=== PATIENT | female | born 2000 | race Caucasian/White ===

== ENCOUNTER 2020-12-18 10:59 | Emergency (ER) | payer SELFPAY ==
--- NOTE | 2020-12-18 11:02 | ERPHSYRPT ---
- History of Present Illness Time Seen by Provider: 12/18/20 11:01 Source: patient Exam Limitations: no limitations Physician History: This is a 20-year-old white female who noticed mild suprapubic cramping yesterday and vaginal bleeding described as spotting. The cramping and the spotting has not increased since yesterday. Patient took 6 different test between yesterday and today. Each 1 showed a positive test. Patient's last menstrual period was November 13, 2020. Patient denies nausea vomiting and diarrhea. Patient denies shortness of breath and denies chest pain. 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 She has seen Dr. Hunt in the past. Patient denies flank pain and she denies dysuria. Patient is not dizzy. She states that she does not particularly feel weak or fatigued. Patient has no liver disease. She denies having any bleeding or clotting disorders. Patient is not taking aspirin or ibuprofen. Timing/Duration: yesterday Activites at Onset: none Quality: cramping (Mild suprapubic) Onset Location: suprapubic Pain Radiation: none Severity of Pain-Max: mild Severity of Pain-Current: mild Prior abdominal problems: none Sexual intercourse history: non-contributory Modifying Factors: Improves With: nothing Associated Symptoms: vaginal discharge (Described as spotting of blood.), No nausea, No vomiting, No dysuria Allergies/Adverse Reactions: No Known Drug Allergies Allergy (Unverified 12/18/20 11:15) Home Medications: No Reportable Medications [No Reported Medications] 12/18/20 [History] Travel Risk - International Travel Have you traveled outside of the country in past 3 weeks: No - Coronavirus Screening Are you exhibiting any of the following symptoms?: No Close contact with a COVID-19 positive Pt in past 14-21 Days: No - Review of Systems Constitutional: No Symptoms Eyes: No Symptoms Ears, Nose, & Throat: No Symptoms Respiratory: No Symptoms Cardiac: No Symptoms Abdominal/Gastrointestinal: Abdominal Pain (Mild suprapubic) Genitourinary Symptoms: Vaginal Bleeding (Described as mild spotting. Unchanged in degree over 24 hours.) Musculoskeletal: No Symptoms Skin: No Symptoms Neurological: No Symptoms Psychological: No Symptoms Endocrine: No Symptoms Hematologic/Lymphatic: No Symptoms Immunological/Allergic: No Symptoms All Other Systems: Reviewed and Negative - Past Medical History Pertinent Past Medical History: Yes - Past Surgical History Past Surgical History: Yes - Nursing Vital Signs Nursing Vital Signs: Initial Vital Signs Temperature 97.1 F 12/18/20 11:03 Pulse Rate 108 H 12/18/20 11:03 Respiratory Rate 18 12/18/20 11:03 Blood Pressure 130/86 12/18/20 11:03 O2 Sat by Pulse Oximetry 98 12/18/20 11:03 Pain Scale Pain Intensity 0 - Physical Exam General Appearance: no apparent distress, alert, anxiety Eye Exam: PERRL/EOMI, eyes nml inspection Ears, Nose, Throat Exam: normal ENT inspection, moist mucous membranes Neck Exam: normal inspection, non-tender, supple, full range of motion Respiratory Exam: normal breath sounds, lungs clear, airway intact, No chest tenderness, No respiratory distress Cardiovascular Exam: tachycardia (Mild) Gastrointestinal/Abdomen Exam: soft, normal bowel sounds, No tenderness, No guarding, No rebound Pelvic Exam: not done Rectal Exam: not done Back Exam: normal inspection, normal range of motion, No CVA tenderness, No vertebral tenderness Extremity Exam: normal inspection, normal range of motion, pelvis stable Neurologic Exam: alert, oriented x 3, cooperative, 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, normal mood/affect, nml cerebellar function, nml station & gait, sensation nml Skin Exam: normal color, warm, dry Lymphatic Exam: No adenopathy SpO2 Interpretation: normal O2 Delivery: Room Air - Course Nursing assessment & vital signs reviewed: Yes Ordered Tests: Active Orders 24 hr Category Date Time Status OB <14 WKS 1ST GESTATION [US] Stat Exams 12/18/20 11:32 Completed CBC W DIFF Stat Lab 12/18/20 11:20 Completed CMP Stat Lab 12/18/20 11:20 Completed CULTURE,URINE Stat Lab 12/18/20 11:16 Received HCG, Quantitative (Inhouse) Stat Lab 12/18/20 11:20 Completed PROTIME WITH INR Stat Lab 12/18/20 11:20 Completed UA W/RFX UR CULTURE Stat Lab 12/18/20 11:16 Completed Lab/Rad Data: Laboratory Result Diagrams 12/18/20 11:20 12/18/20 11:20 Laboratory Results 12/18/20 12/18/20 12/18/20 Range/Units 11:20 11:20 11:20 WBC 7.0 (4.0-10.5) K/mm3 RBC 4.70 (4.1-5.4) M/mm3 Hgb 11.9 L (12.0-16.0) gm/dl Hct 38.1 (35-47) % MCV 81.1 (78-100) fl MCH 25.3 L (26-32) pg MCHC 31.2 L (32-36) g/dl RDW 14.4 H (11.5-14.0) % Plt Count 178 (150-450) K/mm3 MPV 10.7 (7.5-11.0) fl Gran % 70.0 H (36.0-66.0) % Eos # (Auto) 0.05 (0-0.5) Absolute Lymphs (auto) 1.44 (1.0-4.6) Absolute Monos (auto) 0.60 (0.0-1.3) Lymphocytes % 20.5 L (24.0-44.0) % Monocytes % 8.5 (0.0-12.0) % Eosinophils % 0.7 (0.00-5.0) % Basophils % 0.3 (0.0-0.4) % Absolute Granulocytes 4.92 (1.4-6.9) Basophils # 0.02 (0-0.4) PT 11.7 (9.95-12.35) SECONDS INR 1.04 (0.8-3.0) Sodium 138 (137-145) mmol/L Potassium 3.9 (3.5-5.1) mmol/L Chloride 105 (98-107) mmol/L Carbon Dioxide 24 (22-30) mmol/L Anion Gap 12.9 (5-15) MEQ/L BUN 14 (7-17) mg/dL Creatinine 0.57 (0.52-1.04) mg/dL Estimated GFR > 60.0 ML/MIN Glucose 103 (74-106) mg/dL Calcium 9.3 (8.4-10.2) mg/dL Total Bilirubin 0.20 (0.2-1.3) mg/dL AST 19 (14-36) U/L ALT 17 (0-35) U/L Alkaline Phosphatase 48 (38-126) U/L Serum Total Protein 7.7 (6.3-8.2) g/dL Albumin 4.6 (3.5-5.0) g/dL Beta HCG, Quant mIU/ml Urine Color (YELLOW) Urine Appearance (CLEAR) Urine pH (5-6) Ur Specific [place] (1.005-1.025) Urine Protein (Negative) Urine Ketones (NEGATIVE) Urine Blood (0-5) Kyle/ul Urine Nitrite (NEGATIVE) Urine Bilirubin (NEGATIVE) Urine Urobilinogen (0-1) mg/dL Ur Leukocyte Esterase (NEGATIVE) Urine WBC (Auto) (0-5) /HPF Urine RBC (Auto) (0-2) /HPF U Epithel Cells (Auto) (FEW) /HPF Urine Bacteria (Auto) (NEGATIVE) /HPF Urine Mucus (Auto) (NEGATIVE) /HPF Urine Culture Reflexed (NO) Urine Glucose (NEGATIVE) mg/dL 12/18/20 12/18/20 Range/Units 11:20 11:16 WBC (4.0-10.5) K/mm3 RBC (4.1-5.4) M/mm3 Hgb (12.0-16.0) gm/dl Hct (35-47) % MCV (78-100) fl MCH (26-32) pg MCHC (32-36) g/dl RDW (11.5-14.0) % Plt Count (150-450) K/mm3 MPV (7.5-11.0) fl Gran % (36.0-66.0) % Eos # (Auto) (0-0.5) Absolute Lymphs (auto) (1.0-4.6) Absolute Monos (auto) (0.0-1.3) Lymphocytes % (24.0-44.0) % Monocytes % (0.0-12.0) % Eosinophils % (0.00-5.0) % Basophils % (0.0-0.4) % Absolute Granulocytes (1.4-6.9) Basophils # (0-0.4) PT (9.95-12.35) SECONDS INR (0.8-3.0) Sodium (137-145) mmol/L Potassium (3.5-5.1) mmol/L Chloride (98-107) mmol/L Carbon Dioxide (22-30) mmol/L Anion Gap (5-15) MEQ/L BUN (7-17) mg/dL Creatinine (0.52-1.04) mg/dL Estimated GFR ML/MIN Glucose (74-106) mg/dL Calcium (8.4-10.2) mg/dL Total Bilirubin (0.2-1.3) mg/dL AST (14-36) U/L ALT (0-35) U/L Alkaline Phosphatase (38-126) U/L Serum Total Protein (6.3-8.2) g/dL Albumin (3.5-5.0) g/dL Beta HCG, Quant 12.61 mIU/ml Urine Color YELLOW (YELLOW) Urine Appearance SLIGHTLY CLOUDY (CLEAR) Urine pH 6.0 (5-6) Ur Specific [place] 1.015 (1.005-1.025) Urine Protein 30 (Negative) Urine Ketones NEGATIVE (NEGATIVE) Urine Blood LARGE (0-5) Kyle/ul Urine Nitrite NEGATIVE (NEGATIVE) Urine Bilirubin NEGATIVE (NEGATIVE) Urine Urobilinogen NEGATIVE (0-1) mg/dL Ur Leukocyte Esterase NEGATIVE (NEGATIVE) Urine WBC (Auto) 11-15 (0-5) /HPF Urine RBC (Auto) >101 (0-2) /HPF U Epithel Cells (Auto) RARE (FEW) /HPF Urine Bacteria (Auto) RARE (NEGATIVE) /HPF Urine Mucus (Auto) SLIGHT (NEGATIVE) /HPF Urine Culture Reflexed YES (NO) Urine Glucose NEGATIVE (NEGATIVE) mg/dL - Progress Progress: improved Air Movement: good Progress Note: 12/18/20 13:10 Obstetric ultrasound shows 2 right adnexal simple cysts. There is a thickened endometrial stripe. No evidence for any ectopic . Medical decision making: This patient is hemodynamically stable. Her hemoglobin is 11.9. She is not orthostatic. Her obstetric ultrasound does not show an ectopic . Her quantitative hCG is only very slightly elevated. We will discharge her to home. We will order an outpatient quantitative hCG as well as a repeat CBC. Because of the long holiday weekend, I will order the repeat labs to be performed in 48 hours. I will tell her to wait in the emergency department for the lab results before going home. She should call her primary care physician on December 22 for further management. Blood Culture(s) Obtained: No Antibiotics given: No Counseled pt/family regarding: lab results, diagnosis, need for follow-up, rad results - Departure Departure Disposition: Home Clinical Impression: Vaginal bleeding Condition: Stable Critical Care Time: No Referrals: DOCTOR,NO FAMILY [Primary Care Provider] - Additional Instructions: Return to this [facility]'s lab on 12/20/2020 in the morning to have repeat labs drawn. Wait in the emergency room waiting area for your results before going home. On your lab prescription I will put a note to have the labs called to the emergency department because it is a long holiday weekend. Return to the emergency department before then if symptoms of pain or increased bleeding is present.
[2020-12-18 11:35] LABS: Absolute Neutrophil Ct (ANC) 4.92 (1.4-6.9); BASOPHIL % 0.3 % (0.0-0.4); Basophil (Absolute #) 0.02 (0-0.4); Eosinophil % 0.7 % (0.00-5.0); Eosinophil (Absolute #) 0.05 (0-0.5); Hematocrit 38.1 % (35-47); Hemoglobin 11.9 gm/dl (12.0-16.0); Lymphocyte (Absolute #) 1.44 (1.0-4.6); Lymphocytes % 20.5 % (24.0-44.0); Mean Cell Volume 81.1 fl (78-100); Mean Corpuscular Hemoglobin 25.3 pg (26-32); Mean Corpuscular Hgb Concent. 31.2 g/dl (32-36); Mean Platelet Volume 10.7 fl (7.5-11.0); Monocytes % 8.5 % (0.0-12.0); Platelet Count 178 K/mm3 (150-450); Red Cell Distribution Width 14.4 % (11.5-14.0)
[2020-12-18 11:40] LABS: Appearance SLIGHTLY CLOUDY (CLEAR); Bacteria RARE /HPF (NEGATIVE); Bilirubin NEGATIVE (NEGATIVE); Blood LARGE Ery/ul (0-5); Epithelial Cells RARE /HPF (FEW); Glucose NEGATIVE (NEGATIVE); Ketones NEGATIVE (NEGATIVE); Leukocyte Esterase NEGATIVE (NEGATIVE); Mucus SLIGHT /HPF (NEGATIVE); Nitrite NEGATIVE (NEGATIVE); Protein,Urine Dip 30 (Negative); Specific Gravity 1.015 (1.005-1.025); Urobilinogen NEGATIVE mg/dL (0-1)
[2020-12-18 11:41] LABS: RBC >101 /HPF (0-2)
[2020-12-18 11:44] LABS: INR 1.04 (0.8-3.0); PROTIME 11.7 SECONDS (9.95-12.35)
[2020-12-18 11:47] LABS: ALBUMIN 4.6 g/dL (3.5-5.0); ALKALINE PHOSPHATASE 48 U/L (38-126); BLOOD UREA NITROGEN 14 mg/dL (7-17); CHLORIDE 105 mmol/L (98-107); Calcium 9.3 mg/dL (8.4-10.2); Carbon Dioxide 24 mmol/L (22-30); Creatinine 1 0.57 mg/dL (0.52-1.04); EST GLOMERULAR FILTRATION RATE > 60.0 ML/MIN; Glucose 103 mg/dL (74-106); SGOT/AST 19 U/L (14-36); SGPT/ALT 17 U/L (0-35); SODIUM 138 mmol/L (137-145); Total Protein 7.7 g/dL (6.3-8.2)
[2020-12-18 11:49] LABS: Potassium 3.9 mmol/L (3.5-5.1)
[2020-12-18 11:50] LABS: ANION GAP 12.9 MEQ/L (5-15)
--- NOTE | 2020-12-18 13:00 | XRAY ---
Indication: Bleeding, cramping, and general pain. Two-dimensional transvaginal pelvic sonogram performed. Comparison: None Uterus is retroverted measuring 8.7 x 3.8 x 6.4 cm. No focal solid/cystic uterine mass. Endometrial stripe is thickened measuring 1.6 cm. No endometrial cavity mass or fluid collection. Right ovary measures 1.6 x 1.4 x 2.8 cm and the left measures 3.7 x 1.3 x 2.5 cm. Normal perfusion and follicular cysts bilaterally. 2 indeterminant anechoic cysts seen adjacent to the right ovary, larger measuring 1.4 cm. No suspicious solid adnexal mass or free fluid. Impression: 1. Retroverted uterus with thickened endometrial stripe. Correlate with patient's menstrual cycle. 2. 2 right adnexa simple appearing cysts, possible paraovarian cysts. 3. Remaining transvaginal pelvic sonogram is negative.
[2020-12-18 13:08] VITALS: O2SAT 98
[2020-12-18 13:25] VITALS: BP 120/84; PULSE 76
== END 2020-12-18 13:30 | disposition home or self-care (01) ==
LOC: ED 10:59
DX: N93.9 Abnormal uterine and vaginal bleeding, unspecified (principal); Z32.01 Encounter for pregnancy test, result positive; R10.9 Unspecified abdominal pain
CPT/HCPCS: 36000; 36415; 76801; 80053; 81001; 84702; 85025; 85610; 87086; 99284

== ENCOUNTER 2022-05-10 13:56 | Emergency (ER) | payer OTHER ==
--- NOTE | 2022-05-10 13:58 | ERPHSYRPT ---
- History of Present Illness Time Seen by Provider: 05/10/22 13:58 Source: patient Exam Limitations: no limitations Physician History: This is a 21-year-old white female who is approximate 33 weeks presents with right labial cyst that she thinks is infected. Is been present for a month. She has noticed that it is enlarging over last 5 days. There is been no drainage. Today it was even worse and much more tender. She denies fevers or chills. Timing/Duration: worse Quality: painful Severity: mild (To moderate) Location: other (Right labial) Possible Causes: other (Infected Bartholin cyst) Associated Symptoms: change in skin texture, swelling/mass/lumps (Right labial) Allergies/Adverse Reactions: No Known Drug Allergies Allergy (Verified 05/10/22 14:18) Home Medications: No122/Iron/Folic Acid [ Multi Tablet] 1 each PO DAILY 05/10/22 [History] Hx Tetanus, Diphtheria Vaccination/Date Given: Yes Hx Influenza Vaccination/Date Given: No Travel Risk - International Travel Have you traveled outside of the country in past 3 weeks: No - Coronavirus Screening Are you exhibiting any of the following symptoms?: No Close contact with a COVID-19 positive Pt in past 14-21 Days: No - Review of Systems Constitutional: No Symptoms Eyes: No Symptoms Ears, Nose, & Throat: No Symptoms Respiratory: No Symptoms Cardiac: No Symptoms Abdominal/Gastrointestinal: No Symptoms Genitourinary Symptoms: Other (Infected right labial cyst) Musculoskeletal: No Symptoms Skin: Other (Infected right labial cyst) Neurological: No Symptoms Psychological: No Symptoms Endocrine: No Symptoms Hematologic/Lymphatic: No Symptoms Immunological/Allergic: No Symptoms All Other Systems: Reviewed and Negative - Past Medical History Pertinent Past Medical History: Yes - Past Surgical History Past Surgical History: Yes - Social History Smoking Status: Never smoker Exposure to second hand smoke: No Drug Use: none Patient Lives Alone: No - Nursing Vital Signs Nursing Vital Signs: Initial Vital Signs Temperature 97.3 F 05/10/22 14:01 Pulse Rate 97 H 05/10/22 14:01 Respiratory Rate 16 05/10/22 14:01 Blood Pressure 136/79 05/10/22 14:01 O2 Sat by Pulse Oximetry 99 05/10/22 14:01 Pain Scale Pain Intensity 6 - Physical Exam General Appearance: no apparent distress, alert, anxiety Eye Exam: PERRL/EOMI, eyes nml inspection Ears, Nose, Throat Exam: normal ENT inspection, moist mucous membranes Neck Exam: normal inspection, non-tender, supple, full range of motion Respiratory Exam: normal breath sounds, lungs clear, airway intact, No chest tenderness, No respiratory distress Cardiovascular Exam: regular rate/rhythm, normal heart sounds, normal peripheral pulses Gastrointestinal/Abdomen Exam: soft, normal bowel sounds, No tenderness Pelvic Exam: other (Infected right labial cyst/abscess) Rectal Exam: not done Back Exam: normal inspection, normal range of motion, No CVA tenderness Extremity Exam: normal inspection, normal range of motion, pelvis stable Neurologic Exam: alert, oriented x 3, cooperative, roadside mechanic II-XII nml as tested, nor mal mood/affect, nml cerebellar function, nml station & gait, sensation nml Skin Exam: other (Abscess right labia) Lymphatic Exam: No adenopathy SpO2 Interpretation: normal O2 Delivery: Room Air Procedures - Incision and Drainage Time of Procedure: 14:25 Site: Right labial cyst Anesthesia: 1% Lidocaine cc's of anesthesia: 2 Blade Size: 15 I & D Procedure: betadine prep, culture obtained Results: moderate amount pus - Course Nursing assessment & vital signs reviewed: Yes Ordered Tests: Medication Summary Discontinued Medications Generic Name Dose Route Start Last Admin Trade Name Miguel Ángel PRN Reason Stop Dose Admin Lidocaine HCl Confirm 05/10/22 14:26 Lidocaine Hcl 1% 20 Ml Mdv 20 Ml Ml Administered 05/10/22 14:27 Dose 1 ml .ROUTE .STClear [facility]-MED ONE - Progress Progress: improved Counseled pt/family regarding: diagnosis, need for follow-up - Departure Departure Disposition: Home Clinical Impression: Infected cyst of Bartholin's gland duct Condition: Stable Critical Care Time: No Referrals: WILLIAM RASHID [Primary Care Provider] - Follow up/PCP as directed Additional Instructions: Take your antibiotics as prescribed. Use Tylenol for pain control. Sitz bath twice a day. Compress out digitally any remaining pus. Expect bleeding to be present but decreasing over the next few days. Use a peripad and change as needed. Follow-up with your youth career specialist and primary care physician for further evaluation and management. Prescriptions: Cephalexin Mh 500 mg [Keflex 500 mg] 500 mg PO TID #21 cap
[2022-05-10 14:18] VITALS: BP 136/79; PULSE 97; O2SAT 98
[2022-05-10] MEDS ORDERED: XYLOCAINE 1% HCL 20 ML MDV ONE (14:26)
[2022-05-10] MEDS ORDERED: XYLOCAINE 1% HCL 20 ML MDV IJ ONE (15:08)
== END 2022-05-10 14:56 | disposition home or self-care (01) ==
LOC: ED 13:56
DX: N75.0 Cyst of Bartholin's gland (principal); Z33.1 Pregnant state, incidental
CPT/HCPCS: 56420; 87070; 96372; 99283

== ENCOUNTER 2022-06-24 02:25 | Inpatient (IN) | payer OTHER ==
[2022-06-24] MEDS ORDERED: Zofran 4 MG/2 ML VIAL IV PRN (14:24)
[2022-06-24] MEDS ORDERED: XYLOCAINE 1% HCL 20 ML MDV IJ PRN (14:24)
[2022-06-24 15:46] LABS: Absolute Neutrophil Ct (ANC) 4.87 x10^3/uL (1.4-6.9); Basophil (Absolute #) 0.01 x10^3/uL (0-0.4); Eosinophil % 0.9 % (0.00-5.0); Eosinophil (Absolute #) 0.06 x10^3/uL (0-0.5); Hematocrit 38.4 % (35-47); Hemoglobin 13.2 g/dL (12.0-16.0); Lymphocyte (Absolute #) 1.15 x10^3/uL (1.0-4.6); Lymphocytes % 17.2 % (24.0-44.0); Mean Cell Volume 95.5 fL (78-100); Mean Corpuscular Hemoglobin 32.8 pg (26-32); Mean Corpuscular Hgb Concent. 34.4 g/dL (32-36); Mean Platelet Volume 11.3 fL (7.5-11.0); Monocyte (Absolute #) 0.57 x10^3/uL (0.0-1.3); Monocytes % 8.5 % (0.0-12.0); Neutrophil % 72.9 % (36.0-66.0); Platelet Count 155 x10^3/uL (150-450); Red Blood Count 4.02 x10^6/uL (4.1-5.4); Red Cell Distribution Width 14.5 % (11.5-14.0); White Blood Count 6.7 x10^3/uL (4.0-10.5)
[2022-06-24] MEDS: CYTOTEC PO SCH ×4 (16:04→22:02)
[2022-06-24 17:43] LABS: ABO TYPING O; RH TYPING NEGATIVE
[2022-06-24 17:44] LABS: Antibody Screen POSITIVE (NEGATIVE)
[2022-06-24 19:13] LABS: Amphetamine,Urine NEGATIVE (NEGATIVE); Barbiturate,Urine NEGATIVE (NEGATIVE); Benzodiazepine,Urine NEGATIVE (NEGATIVE); Cocaine,Urine NEGATIVE (NEGATIVE); Methadone,Urine NEGATIVE (NEGATIVE); Opiate,Urine NEGATIVE (NEGATIVE); PCP,Urine NEGATIVE (NEGATIVE); THC,Urine NEGATIVE (NEGATIVE)
[2022-06-25] MEDS: CYTOTEC PO SCH ×3 (00:10→04:40)
[2022-06-25] MEDS ORDERED: STADOL 2 MG IV PRN (01:05)
[2022-06-25] MEDS ORDERED: Ephedrine Sulfate 50 MG/ML IV PRN (02:18)
[2022-06-25] MEDS: Lactated Ringers 1,000 ML IV ONE ×2 (02:20→15:07)
[2022-06-25] MEDS ORDERED: FENTANYL 2 MCG-BUPIV 0.125%-NS 250 ML Epidur 250 ML EPIDURAL SCH (02:30)
[2022-06-25] MEDS: Lactated Ringers 1,000 ML IV SCH ×2 (03:25→06:53)
[2022-06-25] MEDS ORDERED: PITOCIN 30 UNITS/ LR 500 ML 500 ML IV ONE (04:36)
[2022-06-25] MEDS ORDERED: BRETHINE 1 MG/ML SQ PRN (04:37)
[2022-06-25] MEDS ORDERED: PITOCIN 30 UNITS/ LR 500 ML 30 UNITS/500 ML PLAST..BAG IV SCH ×2 (05:00→09:00)
[2022-06-25] MEDS ORDERED: SUBLIMAZE 100 MCG/2 ML ONE (10:14)
[2022-06-25] MEDS ORDERED: Sensorcaine 0.25% 10 ML ONE (10:14)
[2022-06-25] MEDS ORDERED: TYLENOL EXTRA STRENGTH 500 MG PO PRN (14:02)
[2022-06-25] MEDS ORDERED: TUCKS TP PRN (14:02)
[2022-06-25] MEDS ORDERED: Dermoplast Spray TP PRN (14:02)
[2022-06-25] MEDS ORDERED: LANSINOH 40 GM TOP PRN (14:02)
[2022-06-25] MEDS: KEFZOL 1 GM/50 ML PREMIX** 1 GM/50 ML IVPB IV SCH ×2 (14:47→15:19)
[2022-06-25] MEDS: CEFAZOLIN 2 GM-D5W BAG** 2 GM/50 ML ML IV SCH (21:03)
[2022-06-25] MEDS: MOTRIN 400 MG PO PRN (21:03)
[2022-06-25] MEDS: Docusate Sodium 100 MG PO SCH (21:03)
[2022-06-26] MEDS: MOTRIN 400 MG PO PRN (03:04)
[2022-06-26] MEDS: CEFAZOLIN 2 GM-D5W BAG** 2 GM/50 ML ML IV SCH (06:50)
[2022-06-26 07:04] LABS: Absolute Neutrophil Ct (ANC) 8.26 x10^3/uL (1.4-6.9); Basophil (Absolute #) 0.02 x10^3/uL (0-0.4); Eosinophil % 0.4 % (0.00-5.0); Eosinophil (Absolute #) 0.04 x10^3/uL (0-0.5); Hemoglobin 9.2 g/dL (12.0-16.0); Lymphocyte (Absolute #) 2.04 x10^3/uL (1.0-4.6); Mean Cell Volume 98.2 fL (78-100); Mean Corpuscular Hemoglobin 32.3 pg (26-32); Mean Corpuscular Hgb Concent. 32.9 g/dL (32-36); Mean Platelet Volume 10.4 fL (7.5-11.0); Monocyte (Absolute #) 0.89 x10^3/uL (0.0-1.3); Monocytes % 7.9 % (0.0-12.0); Neutrophil % 72.9 % (36.0-66.0); Platelet Count 138 x10^3/uL (150-450); Red Blood Count 2.85 x10^6/uL (4.1-5.4); Red Cell Distribution Width 14.8 % (11.5-14.0); White Blood Count 11.3 x10^3/uL (4.0-10.5)
--- NOTE | 2022-06-26 09:32 | PCM.NOTE ---
Date and Time: 06/26/22930 Subjective Assessment: ppd 1 sp pt resting in bed and doing well vss afebrile abd; soft uterus; firm lochia; mild a/p sp ppd 1 dc home tomorrow fu offic 3 wks OBJECTIVE DATA Vital Signs: Vital Signs - 24 hr Temp Pulse Resp BP BP Pulse Ox 06/26/22 03:00 98.2 F 93 H 20 113/59 06/25/22 20:30 99.0 F 100 H 18 127/72 97 06/25/22 16:30 98.8 F 99 H 16 127/62 97 06/25/22 16:00 98.7 F 109 H 16 95/52 100 06/25/22 15:30 98.7 F 114 H 18 122/55 100 06/25/22 15:00 98.7 F 94 H 18 130/66 99 06/25/22 14:30 98.7 F 87 18 99/48 99 06/25/22 14:15 98.7 F 109 H 18 113/65 99 06/25/22 14:00 98.7 F 118 H 18 105/65 98 06/25/22 13:45 98.7 F 121 H 18 114/69 98 06/25/22 13:30 98.7 F 110 H 18 119/65 98 06/25/22 12:45 98.7 F 99 H 16 97 06/25/22 12:30 98.7 F 96 H 16 117/64 97 06/25/22 12:00 98.7 F 94 H 16 123/59 97 06/25/22 11:45 98.7 F 92 H 16 105/57 97 06/25/22 11:30 98.7 F 96 H 18 126/58 95 06/25/22 11:15 98.7 F 18 95 06/25/22 11:00 98.7 F 96 H 18 125/59 95 06/25/22 10:52 98.7 F 83 18 128/80 95 06/25/22 10:45 98.8 F 99 H 16 97 06/25/22 10:37 98.7 F 79 18 146/74 95 06/25/22 10:22 98.7 F 83 18 122/79 95 06/25/22 10:07 98.7 F 85 18 123/84 95 06/25/22 09:52 98.7 F 84 18 124/91 95 Pain Assessment - Last Documented Pain Intensity [Anterior] 0 Pain Intensity 4 Pain Scale Used 0-10 Pain Scale Intake and Output: Intake & Output 06/23/22 06/24/22 06/25/22 06/26/22 11:59 11:59 11:59 11:59 Intake Total 700 Output Total 375 Balance -375 700 Weight 84.822 kg Lab Results: Lab Results-Last 24 Hours 06/26/22 Range/Units 07:01 WBC 11.3 H (4.0-10.5) x10^3/uL RBC 2.85 L (4.1-5.4) x10^6/uL Hgb 9.2 L D (12.0-16.0) g/dL Hct 28.0 L (35-47) % MCV 98.2 (78-100) fL MCH 32.3 H (26-32) pg MCHC 32.9 (32-36) g/dL RDW 14.8 H (11.5-14.0) % Plt Count 138 L (150-450) x10^3/uL MPV 10.4 (7.5-11.0) fL Gran % 72.9 H (36.0-66.0) % Immature Gran % (Auto) 0.6 H (0.00-0.4) % Nucleat RBC Rel Count 0.0 (0.00-0.1) % Eos # (Auto) 0.04 (0-0.5) x10^3/uL Immature Gran # (Auto) 0.07 H (0.00-0.03) x10^3u/L Absolute Lymphs (auto) 2.04 (1.0-4.6) x10^3/uL Absolute Monos (auto) 0.89 (0.0-1.3) x10^3/uL Absolute Nucleated RBC 0.00 (0.00-0.01) x10^3u/L Lymphocytes % 18.0 L (24.0-44.0) % Monocytes % 7.9 (0.0-12.0) % Eosinophils % 0.4 (0.00-5.0) % Basophils % 0.2 (0.0-0.4) % Absolute Granulocytes 8.26 H (1.4-6.9) x10^3/uL Basophils # 0.02 (0-0.4) x10^3/uL Assessment/Plan (1) Vaginal delivery Current Visit: Yes Status: Acute Code(s): O80 - ENCOUNTER FOR FULL-TERM UNCOMPLICATED DELIVERY
--- NOTE | 2022-06-26 09:38 | PCM.DS ---
Discharge Summary Date of Admission: 06/25/22 02:25 Admitting Physician: SHEILA ELIZABETH DO Consults: Consults on Case 06/25/22 02:19 Notify Anesthesia Provider PRN 06/25/22 14:03 Notify Physician ROUTINE 06/25/22 17:39 Navigation ONCE Primary Care Provider: WILLIAM RASHID Allergies Allergies No Known Drug Allergies Allergy (Verified 05/10/22 14:18) Hospital Summary - Hospital Course Hospital Course: pt admitted on june 24 for cytotec induction and subsequently delivered on june 25 live baby girl without complication. during period did well and now stable for discharge on june 27. pt had hgb at 9.2 and is stable for discharge on june 27. pt advised to fu in office in 3 wks. all questions answered to her satisfaction. - Vitals & Intake/Output Vital Signs: Vital Signs Temperature 98.2 F 06/26/22 03:00 Pulse Rate 93 H 06/26/22 03:00 Respiratory Rate 20 06/26/22 03:00 Blood Pressure 113/59 06/26/22 03:00 O2 Sat by Pulse Oximetry 97 06/25/22 20:30 Intake & Output: Intake & Output 06/23/22 06/24/22 06/25/22 06/26/22 11:59 11:59 11:59 11:59 Intake Total 700 Output Total 375 Balance -375 700 Weight 84.822 kg - Lab Result Diagrams: 06/26/22 07:01 Lab Results-Last 24 Hrs: Lab Results-Last 24 Hours 06/26/22 Range/Units 07:01 WBC 11.3 H (4.0-10.5) x10^3/uL RBC 2.85 L (4.1-5.4) x10^6/uL Hgb 9.2 L D (12.0-16.0) g/dL Hct 28.0 L (35-47) % MCV 98.2 (78-100) fL MCH 32.3 H (26-32) pg MCHC 32.9 (32-36) g/dL RDW 14.8 H (11.5-14.0) % Plt Count 138 L (150-450) x10^3/uL MPV 10.4 (7.5-11.0) fL Gran % 72.9 H (36.0-66.0) % Immature Gran % (Auto) 0.6 H (0.00-0.4) % Nucleat RBC Rel Count 0.0 (0.00-0.1) % Eos # (Auto) 0.04 (0-0.5) x10^3/uL Immature Gran # (Auto) 0.07 H (0.00-0.03) x10^3u/L Absolute Lymphs (auto) 2.04 (1.0-4.6) x10^3/uL Absolute Monos (auto) 0.89 (0.0-1.3) x10^3/uL Absolute Nucleated RBC 0.00 (0.00-0.01) x10^3u/L Lymphocytes % 18.0 L (24.0-44.0) % Monocytes % 7.9 (0.0-12.0) % Eosinophils % 0.4 (0.00-5.0) % Basophils % 0.2 (0.0-0.4) % Absolute Granulocytes 8.26 H (1.4-6.9) x10^3/uL Basophils # 0.02 (0-0.4) x10^3/uL Final Diagnosis/Problem List - Final Discharge Diagnosis/Problem (1) Vaginal delivery Current Visit: Yes Status: Acute Code(s): O80 - ENCOUNTER FOR FULL-TERM UNCOMPLICATED DELIVERY - Discharge Disposition: Home, Self-Care Condition: Stable Prescriptions: No Action No122/Iron/Folic Acid [ Multi Tablet] 1 each PO DAILY Follow up with: WILLIAM RASHID [Primary Care Provider] - SHEILA ELIZABETH DO [ACTIVE STAFF] - 3 weeks (should fu in 3 wks)
[2022-06-26] MEDS ORDERED: Rhogam Plus 300 MCG IM ONE (10:00)
[2022-06-26] MEDS: FERREX 150 PO SCH (10:39)
[2022-06-26] MEDS: Docusate Sodium 100 MG PO SCH ×2 (10:39→21:43)
[2022-06-26 17:42] LABS: HBsAg Screen Negative (Negative)
[2022-06-27] MEDS: Docusate Sodium 100 MG PO SCH (11:05)
[2022-06-27] MEDS: FERREX 150 PO SCH (11:05)
[2022-06-27 14:40] VITALS: BP 135/73; PULSE 102; O2SAT 97
== END 2022-06-27 15:25 | disposition home or self-care (01) | DRG 768 ==
LOC: OB 02:25 → OBSVTOIN 06-25 02:25
PROVIDERS: ADMIT Obstetrics & Gynecology; ATTEND Obstetrics & Gynecology
PROC: 10E0XZZ Delivery of Products of Conception, External Approach (ICD-10-PCS; principal; 2022-06-27)
PROC: 0DQR0ZZ Repair Anal Sphincter, Open Approach (ICD-10-PCS; 2022-06-27)
DX: O70.20 Third degree perineal laceration during delivery, unspecified (principal); Z37.0 Single live birth; Z3A.39 39 weeks gestation of pregnancy
CPT/HCPCS: 36415; 80307; 85025; 85461; 86850; 86900; 86901; 87086; 87340; 96372; 99213; G0378; J0595; J0690; J2590; J2790; J3010; A9270-GY

== ENCOUNTER 2022-10-16 08:26 | Emergency (ER) | payer OTHER ==
[2022-10-16] MEDS ORDERED: XYLOCAINE 1% HCL 20 ML MDV IJ ONE (08:27)
[2022-10-16 08:40] VITALS: BP 117/80; PULSE 94; O2SAT 99
[2022-10-16] MEDS ORDERED: Rocephin 1000 MG INJ IM ONE (09:06)
[2022-10-16] MEDS ORDERED: Rocephin 1000 MG INJ ONE (09:09)
--- NOTE | 2022-10-16 09:10 | ERPHSYRPT ---
- History of Present Illness Time Seen by Provider: 10/16/22 09:06 Source: patient Exam Limitations: no limitations Patient Subjective Stated Complaint: pt c/o of a cyst on right lower labia, pt states that this is her 2nd one in the same spot in 7 months and the first had to be lanced and drained in the ER Triage Nursing Assessment: Pt brought self to the ER, vitals wnl, rates pain as 5/10, denies draining from cyst, area is red but no drainage, no other issues at this time, doesn't appear to be in any distress Physician History: pt c/o of a cyst on right lower labia, pt states that this is her 2nd one in the same spot in 7 months and the first had to be lanced and drained in the ER Timing/Duration: day(s) (2-3 days) Severity: mild Associated Symptoms: denies symptoms Allergies/Adverse Reactions: No Known Drug Allergies Allergy (Verified 10/16/22 08:39) Hx Tetanus, Diphtheria Vaccination/Date Given: Yes Hx Influenza Vaccination/Date Given: No Hx Pneumococcal Vaccination/Date Given: No Travel Risk - International Travel Have you traveled outside of the country in past 3 weeks: No - Coronavirus Screening Are you exhibiting any of the following symptoms?: No Close contact with a COVID-19 positive Pt in past 14-21 Days: No - Vaccine Status Have you recieved a Covid-19 vaccination: No - Review of Systems Constitutional: No Fever, No Chills Eyes: No Symptoms Ears, Nose, & Throat: No Symptoms Respiratory: No Cough, No Dyspnea Cardiac: No Chest Pain, No Edema, No Syncope Abdominal/Gastrointestinal: No Abdominal Pain, No Nausea, No Vomiting, No Diarrhea Genitourinary Symptoms: Other (bartholin cyst on right labia), No Dysuria Musculoskeletal: No Back Pain, No Neck Pain Skin: No Rash Neurological: No Dizziness, No Focal Weakness, No Sensory Changes Psychological: No Symptoms Endocrine: No Symptoms All Other Systems: Reviewed and Negative - Past Medical History Pertinent Past Medical History: Yes Other Medical History: anemia since 13 years old - Past Surgical History Past Surgical History: Yes Neuro Surgical History: No Pertinent History Cardiac: No Pertinent History Respiratory: No Pertinent History Gastrointestinal: No Pertinent History Genitourinary: No Pertinent History Musculoskeletal: No Pertinent History Female Surgical History: No Pertinent History - Social History Smoking Status: Never smoker Exposure to second hand smoke: No Drug Use: none Patient Lives Alone: No - Female History Hx Now: No - Nursing Vital Signs Nursing Vital Signs: Initial Vital Signs Temperature 96.9 F 10/16/22 08:30 Pulse Rate 94 H 10/16/22 08:30 Blood Pressure 117/80 10/16/22 08:30 O2 Sat by Pulse Oximetry 99 10/16/22 08:30 Pain Scale Pain Intensity 5 - Physical Exam General Appearance: no apparent distress, alert Eye Exam: PERRL/EOMI, eyes nml inspection Ears, Nose, Throat Exam: normal ENT inspection, TMs normal, pharynx normal, moist mucous membranes Neck Exam: normal inspection, non-tender, supple, full range of motion Respiratory Exam: normal breath sounds, lungs clear, No respiratory distress Cardiovascular Exam: regular rate/rhythm, normal heart sounds, normal peripheral pulses Gastrointestinal/Abdomen Exam: soft, normal bowel sounds, No tenderness, No mass Pelvic Exam: other (bartholin cyst on right lower labia) Back Exam: normal inspection, normal range of motion, No CVA tenderness, No vertebral tenderness Extremity Exam: normal inspection, normal range of motion, pelvis stable Neurologic Exam: alert, oriented x 3, cooperative, normal mood/affect, nml cerebellar function, nml station & gait, sensation nml, No motor deficits Skin Exam: normal color, warm, dry, No rash Lymphatic Exam: No adenopathy SpO2 Interpretation: normal SpO2: 99 O2 Delivery: Room Air - Course Nursing assessment & vital signs reviewed: Yes - Progress Progress: unchanged Counseled pt/family regarding: diagnosis, need for follow-up - Departure Departure Disposition: Home Clinical Impression: Infected cyst of Bartholin's gland duct Condition: Stable Critical Care Time: No Referrals: WILLIAM RASHID [Primary Care Provider] - Follow Up with PCP/3 days Instructions: Bartholin Gland Cyst Additional Instructions: Discharge/Care Plan ISH CHÁVEZ was seen on 10/16/22 in the Emergency Room. The patient was counseled regarding Diagnosis,Lab results, Imaging studies, need for follow up and when to return to the Emergency Room. Prescriptions given: Discharge Note I have spoken with the patient and/or caregivers. I have explained the patient's condition, diagnosis and treatment plan based on the information available to me at this time. I have answered the patient's and/or caregiver's questions and addressed any concerns. The patient and/or caregivers have as good understanding of the patient's diagnosis, condition and treatment plan as can be expected at this point. The vital signs have been stable. The patient's condition is stable and appropriate for discharge from the emergency department. The patient will pursue further outpatient evaluation with the primary care physician or other designated or consulting physician as outlined in the discharge instructions. The patient and/or caregivers are agreeable to this plan of care and follow-up instructions have been explained in detail. The patient and/or caregivers have received these instruction. The patient/and or caregivers are aware that any significant change in condition or worsening of symptoms should prompt an immediate return to this or the closest emergency department or call 911. ISH CHÁVEZ was seen on 10/16/22 n the Emergency Room. At that time you were treated for an emergent condition, during your visit Laboratory, Radiology and/or other procedures may have been ordered. It is very important that you follow-up with your Primary Care Physician WILLIAM RASHID within the next 24-48 hours to review your Emergency Room visit and the final results of testing that was ordered. Some test results such as Urine Cultures, Blood Cultures, and other cultures if ordered will not be finalized for 24-48 hours. If you do not have a Primary Care Provider please call the medical records department at [phone] ext [phone] to obtain a copy of your results or you may sign into our patient portal to obtain these results by visiting us @ [email or web address] and completing the following steps: 1. Click on the Patient Portal link 2. Click the Patient Self Enrollment Link to complete the enrollment form and entering your 3. Once the enrollment form is completed you will receive an email with a temporary ID and password at the email address you provided. 4. Next choose a user name and password. Your user name must be at least 4 characters long and your password must be at least 4 characters long. 5. Choose a security question from the list and provide your answer to the question. If you already have signed into the Health Portal you may access your Health Care Information 29/05 by the following steps: 1. Login to our website @ [email or web address] 2. Enter your original user name and password. FAQS The [facility] Health Portal is an online tool that contains your Lab Results, Radiology Reports, Visit History, Discharge Instructions and Health Summary Lab and Radiology Results will not be available for 72 hours on the portal. The Portal is a secure site, passwords are encryted and URLs are re-written so they cannot be copied and pasted. You and authorized family members are the only ones who can access your Portal. Also there is a timeout feature that protects your information if you leave the Portal page open. If you have technical difficulty please use the Contact Us link on the page this will allow you to submit any questions you have regarding the Portal or you may contact the Medical Record Department at [phone] ext [phone]. Prescriptions: Mupirocin [Bactroban OINTMENT] 1 gm TOP BID #15 cm Cephalexin Mh 500 mg [Keflex 500 mg] 500 mg PO Q6H #40 cap
== END 2022-10-16 09:38 | disposition home or self-care (01) ==
LOC: ED 08:26
DX: N75.0 Cyst of Bartholin's gland (principal); Z28.310 Unvaccinated for COVID-19
CPT/HCPCS: 96372; 99282; J0696